=== PATIENT | female | born 1990 | race Caucasian/White ===

== ENCOUNTER → 2016-11-10 | Outpatient (CLI) | payer OTHER ==
[~2016-11-10] MED LIST: ALBU1AER9 INH; ONDA4TAB46 PO
[2016-11-10 18:42] LABS: PREG INTERNAL NEGATIVE QC NEG CLEAR BACKGROUND; PREG INTERNAL POSITIVE QC POS CONTROL LINE
[2016-11-13 01:04] LABS: CHLAMYDIA TRACH RNA*** NOT DETECTED (NOT DETECTED); GC (NEIS GONORRHOEAE)RNA** NOT DETECTED (NOT DETECTED)
== END | disposition home or self-care (01) ==
LOC: C.LABSPEC 17:44
PROVIDERS: ATTEND Obstetrics & Gynecology
DX: Z01.419 Encounter for gynecological examination (general) (routine) without abnormal findings (principal)

== ENCOUNTER 2017-04-13 04:34 | Emergency (ER) | payer OTHER ==
[~2017-04-13] VITALS: Ht 160 cm; Wt 74.7 kg
[2017-04-13 04:42] VITALS: BP 136/86; PULSE 93; TEMP 37; O2SAT 96; Ht 160 cm; Wt 74.7 kg
--- NOTE | 2017-04-13 04:58 | EMERGENCY ROOM VISIT NOTE ---
History First contact with patient: 04:41 Chief Complaint: FOREIGNBODY ANY BODY PART Stated Complaint: BUG IN EAR History of Present Illness The patient is a 26 year old female who presents to the Emergency Room with complaints of an insect in her left ear. The patient states that she woke up in the middle of the night and felt a fluttering sensation in her left ear. The patient denies any pain. Review of Systems A complete 10 point review of systems was reviewed with the patient with pertinent positives and negatives as per history of present illness. All else were negative. Past Medical/Surgical History Medical Problems: (1) Asthma (2) Bronchitis (3) Pneumonia Family History FH: cancer FH: diabetes mellitus FH: hypertension Social History Smoking Status: Current Every Day Smoker Alcohol Use: none Marital Status: single Housing Status: lives with family Occupation Status: employed Current/Historical Medications Scheduled PRN Albuterol (Proair Hfa), 2 PUFFS INH QID PRN for SOB/Wheezing Ondansetron Hcl (Zofran), 4 MG PO Q6H PRN for Nausea Physical Exam Vital Signs Date Time Temp Pulse Resp B/P (MAP) Pulse Ox O2 Delivery O2 Flow Rate FiO2 04/13/17 04:42 37.0 93 18 136/86 96 Room Air Physical Exam VITALS: Vitals are noted on the nurse's note and reviewed by myself. Vital signs stable. GENERAL: This is a 26-year-old female, anxious appearing, well-developed well- nourished. EARS: There is a 1 cm insect in the left external auditory canal which is moving on examination. NEURO: Patient was alert and oriented to person place and time. Medical Decision & Procedures Medical Decision The patient was evaluated as above. Exam does reveal an insect in the left external auditory canal. The ear was flushed with room temperature saline and the insect was removed. Repeat exam showed a normal external auditory canal and tympanic membrane. Patient was discharged home in good condition. Medication Reconcilliation Current Medication List: was personally reviewed by me Blood Pressure Screening Patient's blood pressure: Normal blood pressure Impression Primary Impression: Foreign body of ear, left Departure Information Referrals No Doctor, Assigned (PCP) Patient Instructions My [facility] Problem Qualifiers Primary Impression: Foreign body of ear, left Encounter type: initial encounter Qualified Codes: T16.2XXA - Foreign body in left ear, initial encounter
== END 2017-04-13 05:00 | disposition home or self-care (01) ==
LOC: C.EDB 04:35 → C.EDA 05:00
DX: S00.452A Superficial foreign body of left ear, initial encounter (principal); X58.XXXA Exposure to other specified factors, initial encounter; J45.909 Unspecified asthma, uncomplicated; Z87.01 Personal history of pneumonia (recurrent); Z80.9 Family history of malignant neoplasm, unspecified; Z83.3 Family history of diabetes mellitus; Z82.49 Family history of ischemic heart disease and other diseases of the circulatory system; F17.210 Nicotine dependence, cigarettes, uncomplicated

== ENCOUNTER 2017-08-14 19:35 | Emergency (ER) | payer OTHER ==
[~2017-08-14] VITALS: Ht 160 cm; Wt 81.6 kg
[2017-08-14 19:38] VITALS: TEMP 37; Ht 160 cm; Wt 81.6 kg
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
[2017-08-14] MEDS ORDERED: DIPHTHERIA/TETANUS/PERTUSSIS 0.5 ML SYR/VIAL IM. ONE (20:00)
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
[2017-08-14 22:06] VITALS: BP 148/84; PULSE 92; O2SAT 93
== END 2017-08-14 21:56 | disposition home or self-care (01) ==
LOC: EDBD 19:35 → C.EDC 19:37
DX: R51 Headache (principal); M25.561 Pain in right knee; M79.652 Pain in left thigh; V43.52XA Car driver injured in collision with other type car in traffic accident, initial encounter; Z80.9 Family history of malignant neoplasm, unspecified; Z83.3 Family history of diabetes mellitus; Z82.49 Family history of ischemic heart disease and other diseases of the circulatory system